=== PATIENT | female | born 1940 | race Caucasian/White ===

== ENCOUNTER 2021-04-26 14:52 | Emergency (ER) | payer OTHER ==
[2021-04-26 16:34] LABS: HEMOGLOBIN 12.3 gm/dl (12.3-15.3); RED BLOOD COUNT 4.38 M/UL (4.00-5.10); WHITE BLOOD COUNT 22.3 K/UL (4.5-11.0)
[2021-04-26] MEDS ORDERED: HYDROCODON-ACE1 EAC2 PO (18:09)
== END 2021-04-26 19:03 | disposition home or self-care (01) ==
LOC: ER1 14:52
PROVIDERS: Preventive Medicine Occupational Medicine
DX: S22.32XA Fracture of one rib, left side, initial encounter for closed fracture (principal); I10 Essential (primary) hypertension; F17.210 Nicotine dependence, cigarettes, uncomplicated; W20.8XXA Other cause of strike by thrown, projected or falling object, initial encounter
CPT/HCPCS: 70450; 71101; 80053; 82550; 82553; 83690; 83874; 84484; 85025; 86140; 93005; 96374; 99284; J1885